=== PATIENT | male | born 1950 | race Caucasian/White ===

== ENCOUNTER 2018-12-17 05:40 | Observation (INO) ==
[2018-12-17] MEDS ORDERED: ASPIRIN CHEW 324 MG PO STA (05:57)
[2018-12-17] MEDS ORDERED: ASPIRIN 81 MG CHEW ONE (05:59)
--- NOTE | 2018-12-17 06:05 | Emergency Department Note ---
ED Provider Note Name: Arthur Zendejas Age: 68 M Arrives Via: POV Informant: Pt & CC: Chest Pain HPI: 68 male arrives for evaluation of chest pain. 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 Gradually worsening and at times sharp in nature. Took tums without relief. No assocaited symptoms. Nothing makes better nor worse. After getting in car to drive here symptoms resolved. He has no current chest pain. No recent trauma no injuries. No shortness of breath, syncope, nausea, vomiting, palpitations, abdominal pain, leg swelling, nor other symptoms. This has not occured before. history of GERD and states this is not like that. Family history of mother possible CAD. Patient with stress test several years ago that he notes was negative. He has no history of CAD. Does have history of HTN, DMII, and DLP. Does not smoke. No recent travel, surgery, nor calf discomfort. Denies SOB nor ESTRADA. ROS: See above HPI for pertinent positives & negatives. A total of 10 systems reviewed and were otherwise negative. Past Medical History: HTN, DMII, DLP, GERD, Gout Past Surgical History: Ocular Surgery post trauma Family History: Mother with "heart problems" though never had heart attack. Social History: Lives with . 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 No Smoking. Occasional alcohol. No drug use. Home Medications: Allopurinol, aspirin, atorvastatin, lisinopril, omeprazole, tamsulosin Allergies NKDA Physical: Vitals: BP 144/87, P 65, R 18, T 36.4, O2 97% Exam: GENERAL: Patient is well appearing and in no acute distress. EYES: No scleral icterus, unremarkable pupils. ENT: Mucous membranes moist, no nasal congestion. NECK: No masses appreciated, no meningismus, trachea is midline. RESPIRATORY: No dyspnea. Clear to auscultation and equal bilaterally. No wheeze , no rhonchi. CARDIOVASCULAR: Regular rate and rhythm. No murmurs, rubs, gallops appreciated. GASTROINTESTINAL: Abdomen soft, non-tender, no peritonitis. Bowel sounds positive. No masses appreciated. BACK: No midline tenderness, no CVA tenderness EXTREMITIES: Normal motion all extremities, no cyanosis, no edema. NEUROLOGIC: Alert and oriented, no acute motor or sensory deficits, no focal weakness, cranial nerves grossly intact. SKIN: No rash, no jaundice, no diaphoresis. ED Course: Prior Medical Record, Triage/Nursing Notes, Medications, Allergies reviewed by Me Vital Signs: reviewed and remarkable for mild HTN Labs: Reviewed and remarkable for normal cbc, trop. mild renal insufficiency Interventions: Asa 324mg PO Imaging: X ray results are stated below per my interpretation: Chest: 1 view: No infiltrate, no effusion, normal cardiac border. EKG: Per My Interpretation: Sinus massiel 56 bpm without ectopy nor ischemia. There is qtc 376. No previous for [facility] Reassessments/Times: Stable without further chest pain Blood pressure: Elevated - Referred to Hospitalist Disposition:Referred to hospitalist Differentials: ACS, Pneumothorax, GERD, PE, Arrythmia, Referred pain, msk amongst other pathologies. Medical Decision Making: Pleasant 68 yr old male with history of DMII, HTN, DLP arrives with left chest pain that resolved prior to arrival. Unstable in nature though no clear evidence this is ACS at this time thus will stick to just asa for now. No breathlessness nor evidence of PE. Hospitalist consulted for further management given he has several risk factors for CAD. Impression: Left sided Chest Pain Chintan Irving MD Impression & Plan Left sided chest pain Past Med/Surg History Social History Feels Safe at Home: Yes Smoking Status: Never smoker Results & Data Vital Signs Vital Signs - 24 hr 12/17/18 05:43 Temperature 36.4 C L Temperature Source Oral Sepsis Recent Fever Within 48 Hours No Sepsis New/Unexplained Change in Mental Status No Sepsis Action Taken by Nursing No Action Required Pulse Rate 65 Respiratory Rate 18 Blood Pressure 144/87 H Blood Pressure Mean 106 Pulse Oximetry 97 Laboratory Data Result diagrams: 12/17/18 06:00 12/17/18 06:00 Lab Results 12/17/18 12/17/18 12/17/18 Range/Units 06:00 06:00 06:07 WBC 6.34 (4.8-10.8) K/uL RBC 4.62 L (4.7-6.1) M/uL Hgb 14.1 (14.0-18.0) g/dL Hct 40.6 L (42-52) % MCV 87.9 (80-100) fL MCH 30.5 (25-34) pg MCHC 34.7 (32-36) g/dL RDW Std Deviation 44.5 (36.4-46.3) fL RDW Coeff of Que 13.8 (11.5-14.5) % Plt Count 167 (130-400) K/uL MPV 10.8 H (7.4-10.4) fL Immature Gran % (Auto) 0.2 % Neut % (Auto) 57.5 % Lymph % (Auto) 27.4 % [place] % (Auto) 10.1 % Eos % (Auto) 4.6 % Baso % (Auto) 0.2 % Immature Gran # (Auto) 0.01 (0.00-0.02) K/uL Neut # (Auto) 3.65 (1.4-6.5) K/uL Lymph # (Auto) 1.74 (1.2-3.4) K/uL [place] # (Auto) 0.64 H (0.11-0.59) K/uL Eos # (Auto) 0.29 (0-0.5) K/uL Baso # (Auto) 0.01 (0-0.2) K/uL Sodium 138 (136-145) mmol/L Potassium 4.2 (3.5-5.1) mmol/L Chloride 107 (98-107) mmol/L Carbon Dioxide 27 (21-32) mmol/L Anion Gap 5.0 (3-11) BUN 22 H (7-18) mg/dl Creatinine 1.43 H (0.6-1.4) mg/dl Est Cr Clr Drug Dosing 61.9 ml/min Est GFR ( Amer) 58.3 Est GFR (Non-Af Amer) 50.3 BUN/Creatinine Ratio 15.5 (10-20) Glucose 126 H (70-99) mg/dl Calcium 8.6 (8.5-10.1) mg/dl POC Troponin I < 0.03 (0-0.045) ng/ml Troponin I < 0.015 (0-0.045) ng/ml Specimen Hemolysis Administered Medications Discontinued Medications Aspirin (Aspirin) 324 mg PO NOW STA Stop: 12/17/18 05:58 Last Admin: 12/17/18 06:05 Dose: 324 mg Aspirin (Aspirin Chew) Confirm Administered Dose 324 [address] Stop: 12/17/18 06:00 Last Admin: 12/17/18 06:06 Dose: Not Given Discharge Plan Visit Data Chief Complaint: Chest Pain Stated Complaint: CHEST PAIN ED Provider: Chintan Irving Discharge Problem: Left sided chest pain Forms Stand Alone Forms: Call Back Authorization, [facility] Prescriptions Prescriptions: No Action atorvastatin 20 mg Tablet 20 mg PO DAILY RF: 0 lisinopril 20 mg Tablet 20 mg PO DAILY RF: 0 allopurinol 100 mg Tablet 100 mg PO DAILY RF: 0 aspirin 81 mg Tablet,Delayed Release (Dr/Ec) 81 mg PO DAILY RF: 0 omeprazole 20 mg Tablet,Delayed Release (Dr/Ec) 20 mg PO DAILY RF: 0 tamsulosin 0.4 mg Capsule 0.4 mg PO DAILY RF: 0
[2018-12-17 06:10] LABS: Basophils # (auto) 0.01 K/uL (0-0.2); Basophils % (auto) 0.2 %; Eosinophils # (auto) 0.29 K/uL (0-0.5); Eosinophils % (auto) 4.6 %; Hematocrit (blood only) 40.6 % (42-52); Hemoglobin 14.1 g/dL (14.0-18.0); Immature Granulocytes # (auto) 0.01 K/uL (0.00-0.02); Immature Granulocytes % (auto) 0.2 %; Lymphocytes # (auto) 1.74 K/uL (1.2-3.4); Lymphocytes % (auto) 27.4 %; Mean Corpuscular Hgb Conc 34.7 g/dL (32-36); Mean Corpuscular Volume 87.9 fL (80-100); Mean Platelet Volume 10.8 fL (7.4-10.4); Monocytes # (auto) 0.64 K/uL (0.11-0.59); Monocytes % (auto) 10.1 %; Neutrophils # (auto) 3.65 K/uL (1.4-6.5); Neutrophils % (auto) 57.5 %; Platelet Count 167 K/uL (130-400); RDW Coefficient of Variation 13.8 % (11.5-14.5); RDW Standard Deviation 44.5 fL (36.4-46.3); Red Blood Count 4.62 M/uL (4.7-6.1); White Blood Count 6.34 K/uL (4.8-10.8)
[2018-12-17 06:38] LABS: BUN Creatinine Ratio 15.5 (10-20); Blood Urea Nitrogen 22 mg/dl (7-18); Calcium 8.6 mg/dl (8.5-10.1); Carbon Dioxide 27 mmol/L (21-32); Chloride 107 mmol/L (98-107); Creatinine Clr Calc Pharmacy 61.9 ml/min; Est GFR (African American) 58.3; Est GFR (Non-African American) 50.3; Glucose 126 mg/dl (70-99); Potassium 4.2 mmol/L (3.5-5.1); Sodium 138 mmol/L (136-145); Troponin I < 0.015 ng/ml (0-0.045)
--- NOTE | 2018-12-17 07:13 | XRay Report ---
XR chest 1V portable HISTORY: Atypical chest pain. COMPARISON: None. FINDINGS: The lungs are clear. Cardiac silhouette is normal in size. No pleural effusions. No pneumot horax. IMPRESSION: No acute process. Electronically signed by: Jeet Warren M.D. 12/17/2018 7:12 AM
--- NOTE | 2018-12-17 07:42 | History & Physical Report ---
Date of Service December 17, 2018 Assessment & Plan (1) Left sided chest pain: We will get serial troponins, continue aspirin, CHERYL inhibitor, statin, cardiac evaluation with Dr. Neumann (2) HLD (hyperlipidemia): Continue Lipitor (3) DM type 2 (diabetes mellitus, type 2): Insulin sliding scale (4) Obesity (BMI 30.0-34.9): Weight loss discussed with patient (5) BPH (benign prostatic hyperplasia): Flomax (6) GERD (gastroesophageal reflux disease): Omeprazole (7) HTN (hypertension): Continue lisinopril, may need to add a beta-leonie (8) Gout: Without flare, continue allopurinol (9) DVT (deep venous thrombosis): Subcu heparin 5000 units Q8, SCDs Of note the patient denied CKD and CAD Patient will be under observation status likely to be here less than 2 midnights History of Present Illness Chief Complaint: CP Primary Care Provider: He has a PCP in [facility] 68-year-old male who is visiting his daughter from [facility]. He has a past medical history of hypertension, diabetes, CAD, hyperlipidemia, obesity, BPH, GERD, and gout and presents the emergency room with chest pain. He denies coronary artery disease and CKD. He is accompanied by his and daughter and her fianc. Patient said he started to get left-sided chest pain around 1-2 AM this morning. It woke him up and the frequency increased as the morning progressed. The patient's gave him Tums, he said this pain was unlike his reflux pain which is substernal in nature. He said this was a sharp 5-6 out of 10 chest pain that waxed and waned. There was no radiation into his neck, jaw, or down his arms, or into his back. He felt warm, but he did not have any diaphoresis, he is not short of breath, and he denies anxiety. He said he ate fish last night and had a baked potato with no butter on it. He denied having a fatty meal, however I did not ask about desert. ROS-No Headache, No Visual Changes, No Nausea, No Vomiting, No Fever, No Chills , No Neck Pain or Stiffness, positive left-sided chest Pain, No Palpitations, No SOB, No ESTRADA, No Cough, No Sputum, No Wheezing, No Abdominal Pain, No Diarrhea , No Hematemesis, No Hemoptysis, No Unexpected Weight Loss, No Flank pain, No Melena, No Hematochezia, No Frequency, No Urgency, No Burning, No Hematuria, No Rashes, No Diaphoresis. Appetite is Normal Physical Exam Gen-AAO x 3, NAD, Afebrile, Obese Head-NCAT, EOMI, PERRLA, Anicteric Sclera, No Posterior Pharyngeal Erythema Neck-Supple, No JVD, No Thyromegaly, No Masses, No LAD, No Bruits Lungs-Clear to Auscultation Bilaterally, No Rales, No Rhonchi, No Wheezing, No Crepitus Chest-No S4, +S1, +S2, No S3, No Murmurs, No Rubs, No Gallops, No Ectopy Abdomen-Soft, Bowel Sounds Present, Obese, Non Tender, Non Distended, No Hepatomegaly, No Splenomegaly, No Palpable Masses, No Rebound, No Rigidity, No Guarding Musculoskeletal-Full Range of Motion Bilaterally, No CVAT Extremities-No Cyanosis, No Clubbing, No Edema Nuero-Cranial Nerves II-XII grossly intact, Motor WNL, DTRs WNL, Strength WNL, Non Focal Psych-Normal Mood Past medical historyhypertension, borderline diabetes, hyperlipidemia, obesity , BPH, GERD, and gout Past surgical historyminor eye surgery Family history-Mother of senile dementia of Alzheimer's type, coronary disease, a three-vessel bypass, and hypertension, father of old age. 3 brothers with hypertension, no sisters, 2 healthy sons, and a daughter with hypertension. Social historypatient is and accompanied by his and daughter at the bedside. He has 3 children, he owns a [employer] business, drinks alcohol occasionally, never smoked. Allergies Allergy/AdvReac Type Severity Reaction Status Date / Time No Known Allergies Allergy Unverified 12/17/18 06:56 Home Medications Home Medications Medication Instructions Recorded Confirmed Type allopurinol 100 mg PO DAILY 12/17/18 12/17/18 History aspirin 81 mg PO DAILY 12/17/18 12/17/18 History atorvastatin 20 mg PO DAILY 12/17/18 12/17/18 History lisinopril 20 mg PO DAILY 12/17/18 12/17/18 History omeprazole 20 mg PO DAILY 12/17/18 12/17/18 History tamsulosin 0.4 mg PO DAILY 12/17/18 12/17/18 History Past Med/Surg History Social History Feels Safe at Home: Yes Smoking Status: Never smoker Physical Exam 2 Vital Signs (Past 24 Hours): Last Vital Signs Temp 36.4 C L 12/17/18 05:43 Pulse 65 12/17/18 05:43 Resp 18 12/17/18 05:43 BP 144/87 H 12/17/18 05:43 Pulse Ox 97 12/17/18 05:43 Results & Data Laboratory Results Allergies No Known Allergies Allergy (Unverified 12/17/18 06:56) Height/Weight/Isolation Height 6 ft Weight 101.7 kg Chemistry 12/17/18 06:00 Sodium 138 Potassium 4.2 Chloride 107 Carbon Dioxide 27 Anion Gap 5.0 BUN 22 H Creatinine 1.43 H Glucose 126 H Diagnostic Findings CXR IMPRESSION: No acute process. EKG showed sinus bradycardia, and nonspecific ST-T wave changes in the inferior and posterior leads. Another EKG is ordered for 11 AM today Code Status & VTE Plan Code Status Full code VTE Prophylaxis Plan VTE Prophylaxis will be ordered: Yes
[2018-12-17] MEDS ORDERED: CARBOHYDRATES FOR HYPOGLYCEMIA PO PRN (08:44)
[2018-12-17] MEDS ORDERED: ONDANSETRON INJ 2 MG/ML 2 ML VIAL IV PRN (08:44)
[2018-12-17] MEDS ORDERED: GLUCOSE 40% GEL 15 GM TUBE PO PRN (08:44)
[2018-12-17] MEDS ORDERED: INSULIN GLARGINE SOLOSTAR 100 UNITS/ML 3 ML PEN SC SCH (08:44)
[2018-12-17] MEDS ORDERED: GLUCOSE 10 TABS/TUBE PO PRN (08:44)
[2018-12-17] MEDS ORDERED: NITROGLYCERIN SL 0.4 MG/TAB TAB SL PRN (08:44)
[2018-12-17] MEDS ORDERED: GLUCAGON FOR INJ 1 MG VIAL SQ PRN (08:44)
[2018-12-17] MEDS ORDERED: POLYETHYLENE (MIRALAX) 17 GM PACK PO PRN (08:44)
[2018-12-17] MEDS ORDERED: ACETAMINOPHEN 325 MG TAB PO PRN (08:44)
[2018-12-17] MEDS ORDERED: DEXTROSE 50% 50 ML SYRINGE IV PRN (08:44)
[2018-12-17] MEDS ORDERED: ATORVASTATIN 20 MG TAB PO SCH (09:00)
[2018-12-17] MEDS ORDERED: PANTOprazole 40 MG TAB PO SCH (09:00)
[2018-12-17] MEDS ORDERED: ASPIRIN 81 MG ECTAB PO SCH (09:00)
[2018-12-17] MEDS ORDERED: TAMSULOSIN HCL 0.4 MG CAP PO SCH (09:00)
[2018-12-17] MEDS ORDERED: LISINOPRIL 20 MG TAB PO SCH (09:00)
[2018-12-17] MEDS ORDERED: ALLOPURINOL 100 MG TAB PO SCH (09:00)
[2018-12-17] MEDS ORDERED: PHARMACY GLYCEMIC MGMT CONSULT PRN (09:12)
[2018-12-17 09:46] LABS: Prothrombin Time 10.5 Seconds (9.0-12.0)
[2018-12-17] MEDS: SODIUM CHLORIDE 0.9% 1000ML 1,000 ML IV SCH ×2 (11:08→21:25)
--- NOTE | 2018-12-17 14:23 | Consultation Report ---
DATE OF CONSULTATION: 12/17/2018 INPATIENT CARDIOLOGY CONSULTATION CONSULTATION REQUESTED BY: Dr. Hester. REASON FOR CONSULTATION: Chest pain. HISTORY OF PRESENT ILLNESS: Mr. Gagnon is a very pleasant 68-year-old gentleman who was originally from out of the area, but is here now looking for wedding venue for his daughter. He presented to [facility] early in the a.m. of 12/17/2018 with complaints of chest pain. The patient states he went to bed last night in his normal state of health after having a nice seafood dinner that was not overly spicy or fatty. He then woke up at approximately 1:00 or 2:00 this morning with a sharp stabbing chest pain. He states at first it was rather fleeting in nature, but then seemed to come in waves. He would have a sharp stabbing pain for a few seconds and then resolve and then will come back a short time later. This continued for an hour or so and it started becoming more and more frequent when the patient decided to come in the Emergency Department for evaluation. However, the pain did resolve on his way here. He denied any associated symptoms with it. Specifically, denied any shortness of breath, diaphoresis, nausea, palpitations, lightheadedness, dizziness, or syncope. He has not had any recurrence of the discomfort since admission. PAST SURGICAL HISTORY: Eye surgery. MEDICAL ILLNESSES: 1. Hypertension. 2. Dyslipidemia. 3. Gout. 4. Diabetes. 5. Benign prostatic hypertrophy. FAMILY HISTORY: Denies any premature coronary artery disease or sudden cardiac . Mother underwent bypass surgery in her 70s. SOCIAL HISTORY: Denies any tobacco use. Drinks occasional alcohol. Denies any recreational drug use. He is and lives at home with his . 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 He is very active in his job and he does exercise on a regular basis as well. REVIEW OF SYSTEMS: As per HPI, all other review of systems reviewed and negative at this time. ALLERGIES: No known drug allergies. MEDICATIONS AN OUTPATIENT: 1. Aspirin 81 mg daily. 2. Atorvastatin 20 mg daily. 3. Lisinopril 20 mg daily. 4. Allopurinol. 5. Tamsulosin. 6. Omeprazole. PHYSICAL EXAMINATION: VITALS: Temperature 36.3, pulse 67, respiratory rate 12, blood pressure 152/84. GENERAL: Awake, alert, oriented x3 in no acute distress. HEENT: Normocephalic, atraumatic. Pupils equal, round, react to light and accommodation. Extraocular muscles intact. Anicteric sclerae. Moist mucous membranes. NECK: No JVD, no bruit. CARDIOVASCULAR: Regular. No S4. Normal S1 and S2. No S3. No murmurs, rubs or gallops. PULMONARY: Clear to auscultation bilaterally. No rales, rhonchi, or wheezing. ABDOMEN: Bowel sounds x4, soft. No rebound, guarding, or tenderness. No organomegaly. EXTREMITIES: No clubbing, cyanosis or edema. +2 pedal pulses bilaterally. SKIN: Warm and dry. TEST RESULTS: A 12-lead EKG performed in the Emergency Department independently reviewed at this time shows sinus bradycardia at 56 beats per minute, normal axis, normal intervals, Q-wave in lead 3, otherwise normal. No signs of active ischemia. LABORATORY STUDIES OF SIGNIFICANCE: Troponin negative x2. IMPRESSION: 1. Chest pain. 2. Diabetes. 3. Hypertension. 4. Dyslipidemia. RECOMMENDATIONS: It was my pleasure to see Mr. Gagnon in consultation today. From a cardiac standpoint, while the patient's chest discomfort is not typical for acute coronary syndrome given his multiple risk factors for coronary artery disease, I do believe further ischemic evaluation is warranted, so we will proceed with a dobutamine stress echocardiogram in the a.m., which is the patient's preference and further recommendations will be made at that time. Otherwise, the patient will be made n.p.o. after midnight.
[2018-12-17] MEDS: INSULIN ASPART 100 UNITS/ML 3 ML PEN SC SCH ×3 (14:39→20:34)
[2018-12-17] MEDS: HEPARIN SOD 5,000 UNIT/0.5 ML VIAL SQ SCH ×2 (15:14→20:34)
[2018-12-18] MEDS: HEPARIN SOD 5,000 UNIT/0.5 ML VIAL SQ SCH (06:08)
[2018-12-18 07:03] LABS: Estimated Average Glucose 134 mg/dl
[2018-12-18] MEDS: INSULIN ASPART 100 UNITS/ML 3 ML PEN SC SCH (08:19)
[2018-12-18] MEDS ORDERED: METOPROLOL TARTRATE 1 MG/ML VIAL IV ONE (08:45)
[2018-12-18] MEDS ORDERED: ATROPINE SULFATE 0.1 MG/ML 10ML SYR IV ONE (08:45)
[2018-12-18] MEDS ORDERED: DOBUTamine HCL 12.5 MG/ML 20 ML VIAL IV ONE (08:45)
[2018-12-18] MEDS ORDERED: ALLOPURINOL 100 MG TAB PO SCH (09:00)
--- NOTE | 2018-12-18 10:12 | Discharge Summary ---
Date of Service December 18, 2018 Admission HPI Per Admitting Provider 68-year-old male who is visiting his daughter from [facility]. He has a past medical history of hypertension, diabetes, CAD, hyperlipidemia, obesity, BPH, GERD, and gout and presents the emergency room with chest pain. He denies coronary artery disease and CKD. He is accompanied by his and daughter and her fianc. Patient said he started to get left-sided chest pain around 1-2 AM this morning. It woke him up and the frequency increased as the morning progressed. The patient's gave him Tums, he said this pain was unlike his reflux pain which is substernal in nature. He said this was a sharp 5-6 out of 10 chest pain that waxed and waned. There was no radiation into his neck, jaw, or down his arms, or into his back. He felt warm, but he did not have any diaphoresis, he is not short of breath, and he denies anxiety. He said he ate fish last night and had a baked potato with no butter on it. He denied having a fatty meal, however I did not ask about desert. Admission Exam Per Admitting Provider ROS-No Headache, No Visual Changes, No Nausea, No Vomiting, No Fever, No Chills , No Neck Pain or Stiffness, positive left-sided chest Pain, No Palpitations, No SOB, No ESTRADA, No Cough, No Sputum, No Wheezing, No Abdominal Pain, No Diarrhea , No Hematemesis, No Hemoptysis, No Unexpected Weight Loss, No Flank pain, No Melena, No Hematochezia, No Frequency, No Urgency, No Burning, No Hematuria, No Rashes, No Diaphoresis. Appetite is Normal Physical Exam Gen-AAO x 3, NAD, Afebrile, Obese Head-NCAT, EOMI, PERRLA, Anicteric Sclera, No Posterior Pharyngeal Erythema Neck-Supple, No JVD, No Thyromegaly, No Masses, No LAD, No Bruits Lungs-Clear to Auscultation Bilaterally, No Rales, No Rhonchi, No Wheezing, No Crepitus Chest-No S4, +S1, +S2, No S3, No Murmurs, No Rubs, No Gallops, No Ectopy Abdomen-Soft, Bowel Sounds Present, Obese, Non Tender, Non Distended, No Hepatomegaly, No Splenomegaly, No Palpable Masses, No Rebound, No Rigidity, No Guarding Musculoskeletal-Full Range of Motion Bilaterally, No CVAT Extremities-No Cyanosis, No Clubbing, No Edema Nuero-Cranial Nerves II-XII grossly intact, Motor WNL, DTRs WNL, Strength WNL, Non Focal Psych-Normal Mood Principal Diagnosis NA Discharge Data Allergies Allergy/AdvReac Type Severity Reaction Status Date / Time No Known Allergies Allergy Unverified 12/17/18 06:56 Consultations 12/17/18 07:06 ED Decision to Admit Stat 12/17/18 08:44 Consult Cardiology Routine Hospital Course (1) Left sided chest pain: Serial troponins neg, Stress test normal,DC home and f/u c PCP (2) HLD (hyperlipidemia): Continue Lipitor (3) DM type 2 (diabetes mellitus, type 2): Diet Mod (4) Obesity (BMI 30.0-34.9): Weight loss discussed with patient (5) BPH (benign prostatic hyperplasia): Flomax (6) GERD (gastroesophageal reflux disease): Omeprazole (7) HTN (hypertension): Continue lisinopril, may need to add a beta-leonie (8) Gout: Without flare, continue allopurinol (9) DVT (deep venous thrombosis): DC today Total Time Total Time Spent Total Time Spent (In Minutes): 48 mins Total Time Includes: Examination of the Patient, Discharge Planning, Medication Reconciliation and Communication With Other Providers Discharge Plan Discharge Items Patient Disposition: Home - Self-Care Reason For Visit: CHEST PAIN Discharge Diagnosis: Chest Pain HTN DM II HLD GERD BPH Discharge Goals: Diagnostic testing Activity: Resume your previous activity Lifting: None and Gradually increase as tolerated Bathing: No limitations Sexual Activity: When tolerated Exercise/Sports: As tolerated Driving/Machine Use: No limitations Weightbearing: Left weightbearing and Right weightbearing Non-emergency contact: Primary Care Provider Call non-emergency contact if: you have any medication questions Follow-up/Referrals: PCP,NO [Primary Care Provider] - (Has PCP in [place]) Diet: Carb Consistent or DM2 and Heart Healthy Addtl Provider Instructions: Follow with your Drs at home Prescriptions: Continue atorvastatin 20 mg Tablet 20 mg PO DAILY RF: 0 lisinopril 20 mg Tablet 20 mg PO DAILY RF: 0 aspirin 81 mg Tablet,Delayed Release (Dr/Ec) 81 mg PO DAILY RF: 0 omeprazole 20 mg Tablet,Delayed Release (Dr/Ec) 20 mg PO DAILY RF: 0 tamsulosin 0.4 mg Capsule 0.4 mg PO DAILY RF: 0 Stand-Alone Forms: [facility]charge Orders: Discharge Order (Routine); Ordered 12/18/18 Ordered By: Ari Hester Admission Data Admit Date/Time: 12/17/18 07:28 Attending Provider: Ari Hester Admit Provider: Ari Hester Primary Care Provider: PCP,NO Other Providers: Hua Gregory David L Service: Telemetry Other Pending Studies at Discharge: No
--- NOTE | 2018-12-18 11:03 | Cardiology Progress Note ---
Date of Service December 18, 2018 Assessment & Plan (1) Left sided chest pain: nonischemic dobutamine stress echo no cardiac source for pain discovered likely secondary to GERD recommend f/u with PCP to further evaluate ok to d/c to home from cardiac standpoint. (2) HTN (hypertension): remains a little high would increase lisinopril to 30mg po daily and f/u with pcp in one week including a bmp draw to evaluate for renal impairment or electrolyte abnormality (3) DM type 2 (diabetes mellitus, type 2): f/u with pcp (4) HLD (hyperlipidemia): cont atorvastatin f/u with pcp Subjective Pt seen and examined, no recurrence of chest discomfort overnight. Feels well. Denies cp, sob, palpitations, lightheadedness or dizziness tele reviewed: sinus rhythm without arrhythmia or significant ectopy. Review of Systems All systems reviewed & are unremarkable except as noted in HPI & below Physical Exam 2 Vital Signs (Past 24 Hours): Last Vital Signs Temp 36.4 C L 12/18/18 10:39 Pulse 138 H 12/18/18 10:53 Resp 16 12/18/18 10:39 BP 180/92 H 12/18/18 10:53 Pulse Ox 95 12/18/18 10:39 Physical Exam: Physical Exam: General: Awake, alert and oriented x 3. No acute distress. HEENT: Normocephalic, atraumatic. Pupils equal, round and reactive to light and accommodation. Extraocular muscles are intact. Anicteric sclera. Moist mucous membranes. Neck: No JVD. No bruit. Cardiovascular: Regular. No S-4. Normal S-1 and S-2. No S-3. No murmurs, rubs or gallops. Pulmonary: Clear to auscultation bilaterally. No rales, rhonchi, or wheezing. Abdomen: Bowel sounds x 4, soft. No rebound, guarding or tenderness. No organomegaly. Extremities: No clubbing, cyanosis or edema. +2 pedal pulses bilaterally. Skin: Warm and dry.
[2018-12-18] MEDS ORDERED: LISINOPRIL 10 MG TAB PO STA (11:08)
[2018-12-18] MEDS: SODIUM CHLORIDE 0.9% 1000ML 1,000 ML IV SCH (11:19)
== END 2018-12-18 13:02 | disposition home or self-care (01) ==
LOC: 2S 05:40 → ED 05:40 → 2S 07:54